=== PATIENT | male | born 1995 | race Caucasian/White ===

== ENCOUNTER 2019-03-14 17:01 | Observation (INO) ==
[2019-03-14] MEDS ORDERED: *HR* Ketamine 500 MG/5 ML MDV ONE (17:10)
[2019-03-14] MEDS ORDERED: *HR* Ketamine 500 MG/5 ML MDV IM ONE (17:15)
[2019-03-14] MEDS ORDERED: 0.9 % Sodium Chloride 1,000 ML IVC ONE (17:15)
--- NOTE | 2019-03-14 17:18 | Emergency Department Note ---
Disposition Clinical Impression: Seizure, History of traumatic brain injury, Marijuana use Disposition: Admitted As Inpatient Condition: Undetermined Referrals: NONE,PCP [Primary Care Provider] - Forms: ED Satisfaction Letter Time of Disposition: 19:01 Altered Mental Status HPI - General Chief Complaint: ED Seizure Stated Complaint: AMS Time Seen by Provider: 03/14/19 17:15 Source: EMS Mode of arrival: EMS Limitations: altered mental status Nursing Notes Reviewed: Yes Vital Signs Reviewed: Yes - History of Present Illness HPI Narrative: 23-year-old male with history of traumatic brain injury and associated sequelae. The patient had apparent seizure previously but no known previous seizure like activity per mother. 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 The mother states that he has had episodes like this in the past but they have not figured out why. Mother states the patient has recently been changed to take melatonin and for sleep. The patient had EMS called after the patient's significant other noted a drying up of bilateral upper extremities. He became altered afterward. He did not urinate himself did not bite his tongue without any shaking episodes. EMS arrived and the patient was extremely agitated requiring 5 mg of intramuscular Versed. The patient was restrained by 4 different burr sander/EMS providers. The patient was immediately administered 250 mg of IM ketamine upon arrival to the emergency department. He was placed on nonrebreather mask and hooked up to the monitor cardiac. The patient had an IV placed and I spoke with the patient's mother who confirms history. Patient unable to provide any history. He has no obvious signs of traumatic injury other than the anterior aspect of bilateral shins likely secondary to being restrained. 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 No other obvious signs of trauma. No obvious injury to the intraoral region of his mouth and no urination. Patient is extremely sweaty on evaluation. - Related Data Home Medications Medication Instructions Recorded Confirmed No Known Home Drugs 03/14/19 03/14/19 Allergies Allergy/AdvReac Type Severity Reaction Status Date / Time No Known Allergies Allergy Verified 05/25/17 00:19 Limitations: ROS unobtainable due to patients medical condition Past Medical History - Past Medical History Source: old records reviewed, obtained from family Medical history: Reports: CVA, other Surgical history: Reports: non-contributory Psychiatric history: Reports: no psych history - Social History Smoking Status: Current every day smoker Smokeless Tobacco Status: No Alcohol use: Reports: occasionally Drug use: Reports: none Physical Exam - General Limitations: altered mental status General appearance: obtunded - Head Head exam: atraumatic, normocephalic, normal inspection - Eye Eye exam: Present: normal appearance, PERRL, EOMI, other (Baseline aniscoria per mother) - ENT ENT exam: normal exam, normal oropharynx, mucous membranes moist - Neck Neck exam: Present: normal inspection, full ROM, trachea midline - Chest Chest inspection: Present: normal inspection, symmetric chest wall rise - Respiratory Respiratory exam: Present: normal lung sounds bilaterally - Cardiovascular Cardiovascular exam: Present: normal rhythm, tachycardia - Abdominal Exam Abdominal exam: Present: soft. Absent: Non-Tender, distention, guarding, rebound - Extremities Exam Extremities exam: Present: normal inspection, full ROM, normal capillary refill. Absent: tenderness, pedal edema - Expanded Neurological Exam Coma Scale Eye Opening: Spontaneous Coma Scale Motor Response: None Coma Scale Verbal Response: None Coma Scale Total: 6 - Skin Skin exam: Present: warm, dry, intact, normal color Course - Reevaluation(s) Reevaluation #1: Was called the bed side by nursing staff. Patient is alert and oriented at this time. He is answering questions appropriately. He still appears to be under the mild amount of importance from the ketamine but is coming out of it. The patient is following commands and is neurologically intact overall this time. Given the patient's history of chronic brain injury and symptoms that have resolved at this time, I feels that the patient likely had a seizure. Patient we given a prophylactic dose of Keppra. Patient will be admitted to the hospital. I will speak to neurology but the patient case will go from there. No further questions or concerns noted. Time: 18:23 - Consultations Consultation #1: I spoke with Dr. Carballo who agreed with plan of care. He agreed that loading Her be appropriate and agrees to see the patient consultation. Time: 18:35 Vital Signs Temperature 99.5 F 03/14/19 17:02 Pulse Rate 100 03/14/19 17:02 Respiratory Rate 22 03/14/19 17:02 Blood Pressure 137/70 03/14/19 17:02 O2 Sat by Pulse Oximetry 96 03/14/19 17:02 Temperature 99.5 F 03/14/19 18:40 Pulse Rate 93 03/14/19 18:43 Respiratory Rate 16 03/14/19 18:43 Blood Pressure 133/66 03/14/19 18:43 O2 Sat by Pulse Oximetry 99 03/14/19 18:43 Oxygen Delivery Oxygen Delivery Room Air Altered Mental Status - MDM Narrative Medical decision making narrative: Patient's workup in the emergency department demonstrates no acute process to account for patient's symptoms. Patient has no longer altered, and is resting comfortably in the room at this time. Feels though the patient likely had a seizure given symptoms short period of time and likeliness that this was a post ictal period of any agitation. The patient will be admitted to the hospital at this time. The patient was given a gram of Keppra prophylactically and we will discuss case with neurology. She made aware and agrees to plan. No further questions or concerns noted at this time. Accepted by Dr. Cortés. - Lab Data Lab results reviewed: Yes I reviewed the patient's lab results. Result diagrams: 03/14/19 17:10 03/14/19 17:10 Lab Results 03/14/19 03/14/19 03/14/19 Range/Units 17:10 17:10 17:10 WBC 11.4 H (4.3-11.1) K/mcL RBC 5.52 H (4.19-5.50) M/mcL Hgb 17.7 H (12.9-16.9) g/dL Hct 52.5 H (37.5-50.1) % MCV 95.1 (83.0-100.0) fL MCH 32.1 (28.0-33.3) pg MCHC 33.7 (31.6-35.5) g/dL RDW 12.0 (11.5-14.5) % Plt Count 293 (140-400) K/mcL MPV 11.5 (9.4-12.4) fL Immature Gran % 0.6 (0-4) % Seg Neutrophils % 41.5 % Lymphocytes % 47.7 % Monocytes % 8.3 % Eosinophils % 1.3 % Basophils % 0.6 % Neutrophils # 4.7 (1.6-8.9) K/mcL Lymphocytes # 5.5 H (0.6-4.6) K/mcL Monocytes # 1.0 (0.0-1.3) K/mcL Eosinophils # 0.2 (0.0-0.6) K/mcL Basophils # 0.1 (0.0-0.2) K/mcL PT 11.7 (9.4-12.1) Seconds INR 1.0 APTT 30.1 (26.0-36.0) Seconds Sodium 141 (136-145) mEq/L Potassium 2.9 L (3.5-5.1) mEq/L Chloride 103 (98-107) mEq/L Carbon Dioxide 14 L (23-29) mEq/L BUN 13 (6-20) mg/dL Creatinine 1.10 (0.70-1.30) mg/dL Est GFR ( Amer) > 60 (> 60) Est GFR (Non-Af Amer) > 60 (> 60) BUN/Creatinine Ratio 12 (6-26) Glucose 157 H (70-105) mg/dL Calculated Osmolality 295 (280-300) Calcium 10.1 (8.6-10.3) mg/dL Total Bilirubin 0.6 (0.3-1.0) mg/dL Direct Bilirubin 0.1 (0.0-0.2) mg/dL Indirect Bilirubin 0.5 (0.0-1.2) mg/dL AST 38 (13-39) Units/L ALT 35 (7-52) Units/L Alkaline Phosphatase 70 (34-104) Units/L Creatine Kinase 152 (30-223) Units/L Troponin I < 0.03 (< 0.04) ng/mL Serum Total Protein 8.5 (6.4-8.9) g/dL Albumin 6.0 H (3.5-5.7) g/dL Globulin 2.5 (2.4-3.5) g/dL Albumin/Globulin Ratio 2.4 H (1.1-2.2) Urine Color (Yellow) Urine Clarity (Clear) Urine pH (5.0-8.0) pH Units Ur Specific [place] (1.010-1.025) Urine Protein (Neg-Trace) mg/dL Urine Glucose (UA) (Normal) mg/dL Urine Ketones (Negative) mg/dL Urine Blood (Negative) Urine Nitrite (Negative) Urine Bilirubin (Negative) Urine Urobilinogen (Normal) mg/dL Ur Leukocyte Esterase (Negative) Urine Microscopic RBC (0-3) per hpf Urine Microscopic WBC (0-3) per hpf Ur Squamous Epith Cells (None-Few) per lpf Urine Bacteria (None-Few) per hpf Hyaline Casts (None-Few) per lpf Ur Culture Indicated? (NO) Salicylates < 2.5 L (15.0-30.0) mg/dL Urine Opiates Screen (Eatbna=822) ng/mL Acetaminophen < 10 L (10-20) mcg/mL Ur Barbiturates Screen (Yfdjbk=328) ng/mL Ur Phencyclidine Scrn (Cutoff=25) ng/mL Ur Amphetamines Screen (Pprhet=0516) ng/mL U Benzodiazepines Scrn (Mdsirc=506) ng/mL Urine Cocaine Screen (Cutoff= 300) ng/mL U Marijuana (THC) Screen (Cutoff = 50) ng/mL Ur Drug Screen Interp Ethyl Alcohol < 10 (Less than 10) mg/dL 03/14/19 03/14/19 Range/Units 17:19 17:22 WBC (4.3-11.1) K/mcL RBC (4.19-5.50) M/mcL Hgb (12.9-16.9) g/dL Hct (37.5-50.1) % MCV (83.0-100.0) fL MCH (28.0-33.3) pg MCHC (31.6-35.5) g/dL RDW (11.5-14.5) % Plt Count (140-400) K/mcL MPV (9.4-12.4) fL Immature Gran % (0-4) % Seg Neutrophils % % Lymphocytes % % Monocytes % % Eosinophils % % Basophils % % Neutrophils # (1.6-8.9) K/mcL Lymphocytes # (0.6-4.6) K/mcL Monocytes # (0.0-1.3) K/mcL Eosinophils # (0.0-0.6) K/mcL Basophils # (0.0-0.2) K/mcL PT (9.4-12.1) Seconds INR APTT (26.0-36.0) Seconds Sodium (136-145) mEq/L Potassium (3.5-5.1) mEq/L Chloride (98-107) mEq/L Carbon Dioxide (23-29) mEq/L BUN (6-20) mg/dL Creatinine (0.70-1.30) mg/dL Est GFR ( Amer) (> 60) Est GFR (Non-Af Amer) (> 60) BUN/Creatinine Ratio (6-26) Glucose (70-105) mg/dL Calculated Osmolality (280-300) Calcium (8.6-10.3) mg/dL Total Bilirubin (0.3-1.0) mg/dL Direct Bilirubin (0.0-0.2) mg/dL Indirect Bilirubin (0.0-1.2) mg/dL AST (13-39) Units/L ALT (7-52) Units/L Alkaline Phosphatase (34-104) Units/L Creatine Kinase (30-223) Units/L Troponin I (< 0.04) ng/mL Serum Total Protein (6.4-8.9) g/dL Albumin (3.5-5.7) g/dL Globulin (2.4-3.5) g/dL Albumin/Globulin Ratio (1.1-2.2) Urine Color Yellow (Yellow) Urine Clarity Cloudy A (Clear) Urine pH 5.0 (5.0-8.0) pH Units Ur Specific [place] 1.006 L (1.010-1.025) Urine Protein 100 H (Neg-Trace) mg/dL Urine Glucose (UA) Normal (Normal) mg/dL Urine Ketones Negative (Negative) mg/dL Urine Blood Moderate H (Negative) Urine Nitrite Negative (Negative) Urine Bilirubin Negative (Negative) Urine Urobilinogen Normal (Normal) mg/dL Ur Leukocyte Esterase Negative (Negative) Urine Microscopic RBC 0-3 (0-3) per hpf Urine Microscopic WBC 0-3 (0-3) per hpf Ur Squamous Epith Cells Many H (None-Few) per lpf Urine Bacteria None Seen (None-Few) per hpf Hyaline Casts None Seen (None-Few) per lpf Ur Culture Indicated? NO (NO) Salicylates (15.0-30.0) mg/dL Urine Opiates Screen Negative (Tjbdtd=716) ng/mL Acetaminophen (10-20) mcg/mL Ur Barbiturates Screen Negative (Hmamxo=907) ng/mL Ur Phencyclidine Scrn Negative (Cutoff=25) ng/mL Ur Amphetamines Screen Negative (Censky=1534) ng/mL U Benzodiazepines Scrn Negative (Zmmkha=504) ng/mL Urine Cocaine Screen Negative (Cutoff= 300) ng/mL U Marijuana (THC) Screen Positive H (Cutoff = 50) ng/mL Ur Drug Screen Interp See Below Ethyl Alcohol (Less than 10) mg/dL - Radiology Data Radiology results reviewed: Yes I reviewed the patient's radiology results. Chest X-Ray 03/14/19 17:15 IMPRESSION: No acute cardiopulmonary disease. D/ / David Francis MD / David Francis MD Interpreting Provider: David Francis MD Head CT 03/14/19 17:16 IMPRESSION: No acute intracranial abnormality. D/ / Juan M Linares MD / Juan M Linares MD Interpreting Provider: Juan M Linares MD - EKG Data EKG attestation: Yes I reviewed and interpreted this EKG. EKG results narrative: Heart rate 100 beats for minute. Sinus tachycardia. No ST elevation or ST depression noted. TPA Checklist - LKW: 3-4.5 hrs Add. Warnings/Precautions Patient/family understanding: The patient/family members have been counseled and understood the risk, benefit, and alternatives of treatment.
[2019-03-14] MEDS ORDERED: 0.9 % Sodium Chloride 1,000 ML ONE ×2 (17:21→18:21)
[2019-03-14 17:39] LABS: Basophils # 0.1 K/mcL (0.0-0.2); Basophils % 0.6 %; Eosinophils # 0.2 K/mcL (0.0-0.6); Eosinophils % 1.3 %; Hematocrit 52.5 % (37.5-50.1); Hemoglobin 17.7 g/dL (12.9-16.9); Immature Granulocytes % 0.6 % (0-4); Lymphocytes # 5.5 K/mcL (0.6-4.6); Lymphocytes % 47.7 %; Mean Corpuscular HGB Conc 33.7 g/dL (31.6-35.5); Mean Corpuscular Hemoglobin 32.1 pg (28.0-33.3); Mean Corpuscular Volume 95.1 fL (83.0-100.0); Mean Platelet Volume 11.5 fL (9.4-12.4); Monocytes % 8.3 %; Neutrophils # 4.7 K/mcL (1.6-8.9); Platelet Count 293 K/mcL (140-400); Red Blood Count 5.52 M/mcL (4.19-5.50); Segmented Neutrophils % 41.5 %
[2019-03-14 17:44] LABS: Bilirubin,Urine Negative (Negative); Blood,Urine Moderate (Negative); Clarity,Urine Cloudy (Clear); Color,Urine Yellow (Yellow); Glucose,Urine (UA) Normal (Normal); Ketones,Urine Negative (Negative); Leukocyte Esterase,Urine Negative (Negative); Nitrite,Urine Negative (Negative); Protein,Urine 100 mg/dL (Neg-Trace); Specific Gravity,Urine 1.006 (1.010-1.025); Urobilinogen,Urine Normal (Normal)
[2019-03-14 17:45] LABS: Bacteria,Urine None Seen per hpf (None-Few); Hyaline Casts,Urine None Seen per lpf (None-Few); RBC,Urine 0-3 per hpf (0-3); Squamous Epithelial Cell,Urine Many per lpf (None-Few); WBC,Urine 0-3 per hpf (0-3)
[2019-03-14 17:47] LABS: Prothrombin Time 11.7 Seconds (9.4-12.1)
[2019-03-14 17:50] LABS: Activated Partial Thrombo Time 30.1 Seconds (26.0-36.0)
--- NOTE | 2019-03-14 17:54 | Emergency Department Note ---
Disposition Clinical Impression: Seizure, History of traumatic brain injury, Marijuana use Disposition: Admitted As Inpatient Condition: Good Referrals: NONE,PCP [Primary Care Provider] - Forms: ED Satisfaction Letter Time of Disposition: 18:18 General Adult HPI - General Chief complaint: ED Seizure Stated complaint: AMS Time Seen by Provider: 03/14/19 17:15 Source: EMS Mode of arrival: EMS Limitations: altered mental status - History of Present Illness Pain Scale: 0 - Related Data Home Medications Medication Instructions Recorded Confirmed No Known Home Drugs 03/14/19 03/14/19 Allergies Allergy/AdvReac Type Severity Reaction Status Date / Time No Known Allergies Allergy Verified 05/25/17 00:19 Past Medical History - Past Medical History Medical history: Reports: CVA, other Surgical history: Reports: non-contributory Psychiatric history: Reports: no psych history - Social History Smoking Status: Current every day smoker Smokeless Tobacco Status: No Alcohol use: Reports: occasionally Drug use: Reports: none Physical Exam - General Limitations: altered mental status General appearance: obtunded Course Vital Signs Temperature 99.5 F 03/14/19 17:02 Pulse Rate 100 03/14/19 17:02 Respiratory Rate 22 03/14/19 17:02 Blood Pressure 137/70 03/14/19 17:02 O2 Sat by Pulse Oximetry 96 03/14/19 17:02 Temperature 99.5 F 03/14/19 17:15 Pulse Rate 88 03/14/19 18:09 Respiratory Rate 16 03/14/19 18:09 Blood Pressure 133/73 03/14/19 18:09 O2 Sat by Pulse Oximetry 98 03/14/19 18:09 Oxygen Delivery Oxygen Delivery Room Air Medical Decision Making - Lab Data Result diagrams: 03/14/19 17:10 03/14/19 17:10 Lab Results 03/14/19 03/14/19 03/14/19 Range/Units 17:10 17:10 17:10 WBC 11.4 H (4.3-11.1) K/mcL RBC 5.52 H (4.19-5.50) M/mcL Hgb 17.7 H (12.9-16.9) g/dL Hct 52.5 H (37.5-50.1) % MCV 95.1 (83.0-100.0) fL MCH 32.1 (28.0-33.3) pg MCHC 33.7 (31.6-35.5) g/dL RDW 12.0 (11.5-14.5) % Plt Count 293 (140-400) K/mcL MPV 11.5 (9.4-12.4) fL Immature Gran % 0.6 (0-4) % Seg Neutrophils % 41.5 % Lymphocytes % 47.7 % Monocytes % 8.3 % Eosinophils % 1.3 % Basophils % 0.6 % Neutrophils # 4.7 (1.6-8.9) K/mcL Lymphocytes # 5.5 H (0.6-4.6) K/mcL Monocytes # 1.0 (0.0-1.3) K/mcL Eosinophils # 0.2 (0.0-0.6) K/mcL Basophils # 0.1 (0.0-0.2) K/mcL PT 11.7 (9.4-12.1) Seconds INR 1.0 APTT 30.1 (26.0-36.0) Seconds Sodium 141 (136-145) mEq/L Potassium 2.9 L (3.5-5.1) mEq/L Chloride 103 (98-107) mEq/L Carbon Dioxide 14 L (23-29) mEq/L BUN 13 (6-20) mg/dL Creatinine 1.10 (0.70-1.30) mg/dL Est GFR ( Amer) > 60 (> 60) Est GFR (Non-Af Amer) > 60 (> 60) BUN/Creatinine Ratio 12 (6-26) Glucose 157 H (70-105) mg/dL Calculated Osmolality 295 (280-300) Calcium 10.1 (8.6-10.3) mg/dL Total Bilirubin 0.6 (0.3-1.0) mg/dL Direct Bilirubin 0.1 (0.0-0.2) mg/dL Indirect Bilirubin 0.5 (0.0-1.2) mg/dL AST 38 (13-39) Units/L ALT 35 (7-52) Units/L Alkaline Phosphatase 70 (34-104) Units/L Creatine Kinase 152 (30-223) Units/L Troponin I < 0.03 (< 0.04) ng/mL Serum Total Protein 8.5 (6.4-8.9) g/dL Albumin 6.0 H (3.5-5.7) g/dL Globulin 2.5 (2.4-3.5) g/dL Albumin/Globulin Ratio 2.4 H (1.1-2.2) Urine Color (Yellow) Urine Clarity (Clear) Urine pH (5.0-8.0) pH Units Ur Specific [place] (1.010-1.025) Urine Protein (Neg-Trace) mg/dL Urine Glucose (UA) (Normal) mg/dL Urine Ketones (Negative) mg/dL Urine Blood (Negative) Urine Nitrite (Negative) Urine Bilirubin (Negative) Urine Urobilinogen (Normal) mg/dL Ur Leukocyte Esterase (Negative) Urine Microscopic RBC (0-3) per hpf Urine Microscopic WBC (0-3) per hpf Ur Squamous Epith Cells (None-Few) per lpf Urine Bacteria (None-Few) per hpf Hyaline Casts (None-Few) per lpf Ur Culture Indicated? (NO) Salicylates < 2.5 L (15.0-30.0) mg/dL Urine Opiates Screen (Olprva=472) ng/mL Acetaminophen < 10 L (10-20) mcg/mL Ur Barbiturates Screen (Ketrbv=200) ng/mL Ur Phencyclidine Scrn (Cutoff=25) ng/mL Ur Amphetamines Screen (Plaqbr=8075) ng/mL U Benzodiazepines Scrn (Mtybjc=692) ng/mL Urine Cocaine Screen (Cutoff= 300) ng/mL U Marijuana (THC) Screen (Cutoff = 50) ng/mL Ur Drug Screen Interp Ethyl Alcohol < 10 (Less than 10) mg/dL 03/14/19 03/14/19 Range/Units 17:19 17:22 WBC (4.3-11.1) K/mcL RBC (4.19-5.50) M/mcL Hgb (12.9-16.9) g/dL Hct (37.5-50.1) % MCV (83.0-100.0) fL MCH (28.0-33.3) pg MCHC (31.6-35.5) g/dL RDW (11.5-14.5) % Plt Count (140-400) K/mcL MPV (9.4-12.4) fL Immature Gran % (0-4) % Seg Neutrophils % % Lymphocytes % % Monocytes % % Eosinophils % % Basophils % % Neutrophils # (1.6-8.9) K/mcL Lymphocytes # (0.6-4.6) K/mcL Monocytes # (0.0-1.3) K/mcL Eosinophils # (0.0-0.6) K/mcL Basophils # (0.0-0.2) K/mcL PT (9.4-12.1) Seconds INR APTT (26.0-36.0) Seconds Sodium (136-145) mEq/L Potassium (3.5-5.1) mEq/L Chloride (98-107) mEq/L Carbon Dioxide (23-29) mEq/L BUN (6-20) mg/dL Creatinine (0.70-1.30) mg/dL Est GFR ( Amer) (> 60) Est GFR (Non-Af Amer) (> 60) BUN/Creatinine Ratio (6-26) Glucose (70-105) mg/dL Calculated Osmolality (280-300) Calcium (8.6-10.3) mg/dL Total Bilirubin (0.3-1.0) mg/dL Direct Bilirubin (0.0-0.2) mg/dL Indirect Bilirubin (0.0-1.2) mg/dL AST (13-39) Units/L ALT (7-52) Units/L Alkaline Phosphatase (34-104) Units/L Creatine Kinase (30-223) Units/L Troponin I (< 0.04) ng/mL Serum Total Protein (6.4-8.9) g/dL Albumin (3.5-5.7) g/dL Globulin (2.4-3.5) g/dL Albumin/Globulin Ratio (1.1-2.2) Urine Color Yellow (Yellow) Urine Clarity Cloudy A (Clear) Urine pH 5.0 (5.0-8.0) pH Units Ur Specific [place] 1.006 L (1.010-1.025) Urine Protein 100 H (Neg-Trace) mg/dL Urine Glucose (UA) Normal (Normal) mg/dL Urine Ketones Negative (Negative) mg/dL Urine Blood Moderate H (Negative) Urine Nitrite Negative (Negative) Urine Bilirubin Negative (Negative) Urine Urobilinogen Normal (Normal) mg/dL Ur Leukocyte Esterase Negative (Negative) Urine Microscopic RBC 0-3 (0-3) per hpf Urine Microscopic WBC 0-3 (0-3) per hpf Ur Squamous Epith Cells Many H (None-Few) per lpf Urine Bacteria None Seen (None-Few) per hpf Hyaline Casts None Seen (None-Few) per lpf Ur Culture Indicated? NO (NO) Salicylates (15.0-30.0) mg/dL Urine Opiates Screen Negative (Euyfmc=471) ng/mL Acetaminophen (10-20) mcg/mL Ur Barbiturates Screen Negative (Tpwqyt=097) ng/mL Ur Phencyclidine Scrn Negative (Cutoff=25) ng/mL Ur Amphetamines Screen Negative (Jpfiwh=9247) ng/mL U Benzodiazepines Scrn Negative (Rwzkeg=304) ng/mL Urine Cocaine Screen Negative (Cutoff= 300) ng/mL U Marijuana (THC) Screen Positive H (Cutoff = 50) ng/mL Ur Drug Screen Interp See Below Ethyl Alcohol (Less than 10) mg/dL Critical Care Time Critical Care Time: Yes Total Critical Care Time: 35 Attestation: Critical care time of 35 minutes spent in medical management of altered mental status and combative patient requiring medications for sedation and airway monitoring. Attestation Statement - Attestation Attestation: I examined this patient and my medical decision-making was reviewed with the Resident Physician. I agree with the documented findings, disposition and treatment plan as described except to the extent set forth below. 23-year-old male presented to the emergency room for altered mental status. Patient was sitting at home with his girlfriend when apparently he had an unresponsive episode where he had some questionable seizure-like activity. It was reported that both of his arms had clenched up to his chest and he was very tight. He has no history of seizure disorder per family members. He does have a history of a traumatic brain injury approximately 5 years ago. There was concerns of possible seizure. There is also concerns of possible drug issues. Patient was combative when EMS arrived. They gave him Versed IM. Patient was still somewhat combative and altered upon arrival to the ER. He then was given 250 mg of IM ketamine. This did help sedate him to the point where we are able to put him in restraints to protect himself and staff members. CT of the brain was negative for any acute intracranial pathology. His bedside glucose was 208. His pulse ox was running in the low 90s. We did place him on a nonrebreather. EKG was reviewed with the resident and agree with the findings as such. All do cumentation agree upon Patient became more alert in the ER. He was no longer combative. I feels that he probably had a seizure today. He presented postictal and was combative during the post ictal state. Patient will be admitted. We will start him on 1 g of IV Keppra. We will consult with neurology.
[2019-03-14] MEDS ORDERED: levETIRAcetam 1,000 MG in 0.9 % Sodium Chloride 100 ML IVPB ONE (18:00)
[2019-03-14 18:07] LABS: Amphetamine Screen,Urine Negative ng/mL (Cutoff=1000); Barbiturate Screen,Urine Negative ng/mL (Cutoff=200); Benzodiazepines Screen,Urine Negative ng/mL (Cutoff=200); Cannabinoid Screen,Urine Positive ng/mL (Cutoff = 50); Cocaine Screen,Urine Negative ng/mL (Cutoff= 300); Opiate Screen,Urine Negative ng/mL (Cutoff=300); Phencyclidine Screen,Urine Negative ng/mL (Cutoff=25)
[2019-03-14 18:15] LABS: Acetaminophen < 10 mcg/mL (10-20); Alanine Aminotransferase 35 Units/L (7-52); Albumin/Globulin Ratio 2.4 (1.1-2.2); Alkaline Phosphatase 70 Units/L (34-104); Aspartate Amino Transferase 38 Units/L (13-39); BUN/Creatinine Ratio 12 (6-26); Bilirubin,Direct 0.1 mg/dL (0.0-0.2); Bilirubin,Indirect 0.5 mg/dL (0.0-1.2); Bilirubin,Total 0.6 mg/dL (0.3-1.0); Blood Urea Nitrogen 13 mg/dL (6-20); Calcium 10.1 mg/dL (8.6-10.3); Carbon Dioxide 14 mEq/L (23-29); Chloride 103 mEq/L (98-107); Creatine Kinase 152 Units/L (30-223); Ethanol < 10 mg/dL (Less than 10); Globulin 2.5 g/dL (2.4-3.5); Glucose 157 mg/dL (70-105); Osmolality,Calculated 295 (280-300); Potassium 2.9 mEq/L (3.5-5.1); Salicylate < 2.5 mg/dL (15.0-30.0); Sodium 141 mEq/L (136-145); Total Protein 8.5 g/dL (6.4-8.9); Troponin I < 0.03 ng/mL (< 0.04); eGFR For Non-African Americans > 60 (> 60)
[2019-03-14] MEDS: 0.9 % Sodium Chloride 1,000 ML IVC ONE ×2 (18:20→18:44)
[2019-03-14] MEDS ORDERED: Naloxone 0.4 MG/ML INJ IVP PRN (21:12)
[2019-03-14] MEDS ORDERED: *HR* LORazepam 2 MG/ML VIAL IVP PRN (21:13)
[2019-03-14] MEDS ORDERED: Ondansetron 4 MG/2 ML VIAL IVP PRN (21:32)
[2019-03-14] MEDS ORDERED: Acetaminophen 325 MG TABLET PO ONE (21:34)
[2019-03-14] MEDS ORDERED: 0.9 % Sodium Chloride 500 ML IVC ONE (22:18)
[2019-03-14] MEDS ORDERED: Acetaminophen/Aspirin/Caffeine TABLET PO PRN (22:19)
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
[2019-03-15] MEDS: 0.9 % Sodium Chloride 1,000 ML IVC SCH ×2 (01:01→08:21)
[2019-03-15 04:53] LABS: Basophils % 0.2 %; Eosinophils # 0.1 K/mcL (0.0-0.6); Eosinophils % 1.1 %; Hematocrit 41.2 % (37.5-50.1); Immature Granulocytes % 0.2 % (0-4); Lymphocytes # 2.1 K/mcL (0.6-4.6); Lymphocytes % 24.3 %; Mean Corpuscular Hemoglobin 31.3 pg (28.0-33.3); Mean Corpuscular Volume 92.2 fL (83.0-100.0); Mean Platelet Volume 11.4 fL (9.4-12.4); Monocytes # 0.8 K/mcL (0.0-1.3); Monocytes % 9.6 %; Neutrophils # 5.6 K/mcL (1.6-8.9); Platelet Count 183 K/mcL (140-400); Red Blood Count 4.47 M/mcL (4.19-5.50); Red Cell Distribution Width 12.2 % (11.5-14.5); Segmented Neutrophils % 64.6 %
[2019-03-15 05:40] LABS: BUN/Creatinine Ratio 12 (6-26); Blood Urea Nitrogen 10 mg/dL (6-20); Calcium 8.8 mg/dL (8.6-10.3); Carbon Dioxide 20 mEq/L (23-29); Chloride 111 mEq/L (98-107); Creatine Kinase 486 Units/L (30-223); Glucose 83 mg/dL (70-105); Osmolality,Calculated 288 (280-300); Potassium 3.9 mEq/L (3.5-5.1); Sodium 140 mEq/L (136-145); eGFR For Non-African Americans > 60 (> 60)
[2019-03-15] MEDS: *HR* Heparin 5,000 UNIT/ML VIAL SQ SCH ×2 (06:03→18:07)
[2019-03-15] MEDS: levETIRAcetam 250 MG TABLET PO SCH ×2 (06:03→18:06)
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
--- NOTE | 2019-03-15 14:42 | EEG/EMG/Oth Biometrics Report ---
EEG Procedure Report Date of procedure: 03/15/19 EEG Procedure: Routine EEG Procedure Note: This is a report of a 21 channel bipolar and referential montage EEG. A posterior dominant rhythm of 8-10 Hz moderate voltage alpha frequency is identified symmetrically in the posterior head regions. This rhythm attenuates symmetrically with eye opening. Hyperventilation is performed and does not significantly alter the recording. Periods of drowsiness and stage II sleep are identified as referenced by dropout of posterior dominant rhythm and emergence of vertex activity K complexes and sleep spindles. Photic stimulation is performed and produces a symmetric driving response. The EKG rhythm strip reveals normal sinus rhythm. Impressions: This EEG recording is within normal limits. There is no evidence of epileptiform activity identified during the recording. Comment: A normal EEG does not preclude a diagnosis of seizure or epilepsy. If the clinical suspicion for seizure activity is high, serial EEGs or perhaps a prolonged recording may increase the yield. Please correlate clinically.
[2019-03-15 15:43] VITALS: BP 111/65
--- NOTE | 2019-03-15 16:36 | Internal Med Progress Note ---
<Chevy Fam - Last Filed: 03/15/19 16:36> Hospitalist Progress Note - Encounter Date of Encounter: 03/15/19 - Exam Vitals: Temp Pulse Resp BP Pulse Ox 98.3 F 59 18 111/65 98 03/15/19 15:43 03/15/19 15:43 03/15/19 15:43 03/15/19 15:43 03/15/19 15:43 - Assessment and Plan (1) Seizure Current Visit: Yes Status: Acute (2) History of traumatic brain injury Current Visit: Yes Status: Acute (3) Hypokalemia Current Visit: Yes Status: Acute (4) DVT prophylaxis Current Visit: Yes Status: Acute (5) Hypotension Current Visit: Yes Status: Acute - Time Spent with Patient Total time spent is greater than 50% in coordination of care (as documented) at patient's floor/unit and/or counseling patient: Internal Medicine: Result - Labs CBC & Chem 7: 03/15/19 04:34 03/15/19 04:34 Labs: Short CBC 03/14/19 03/15/19 Range/Units 17:10 04:34 WBC 11.4 H 8.7 (4.3-11.1) K/mcL Hgb 17.7 H 14.0 D (12.9-16.9) g/dL Hct 52.5 H 41.2 (37.5-50.1) % Plt Count 293 183 (140-400) K/mcL Neutrophils # 4.7 5.6 (1.6-8.9) K/mcL BMP 03/14/19 03/15/19 17:10 04:34 Sodium 141 140 Potassium 2.9 L 3.9 D Chloride 103 111 H Carbon Dioxide 14 L 20 L BUN 13 10 Creatinine 1.10 0.83 Glucose 157 H 83 Calcium 10.1 8.8 Cardiac Enzymes 03/14/19 Range/Units 17:10 Troponin I < 0.03 (< 0.04) ng/mL Liver Function 03/14/19 Range/Units 17:10 Total Bilirubin 0.6 (0.3-1.0) mg/dL Direct Bilirubin 0.1 (0.0-0.2) mg/dL AST 38 (13-39) Units/L ALT 35 (7-52) Units/L Alkaline Phosphatase 70 (34-104) Units/L Albumin 6.0 H (3.5-5.7) g/dL Urine 03/14/19 Range/Units 17:22 Urine Color Yellow (Yellow) Urine Clarity Cloudy A (Clear) Urine pH 5.0 (5.0-8.0) pH Units Ur Specific [place] 1.006 L (1.010-1.025) Urine Protein 100 H (Neg-Trace) mg/dL Urine Glucose (UA) Normal (Normal) mg/dL - ABG Interpretation ABG results: PT/INR, D-dimer PT 11.7 Seconds (9.4-12.1) 03/14/19 17:10 - Impressions Impressions Chest X-Ray 03/14/19 17:15 IMPRESSION: No acute cardiopulmonary disease. D/ / David Francis MD / David Francis MD Interpreting Provider: David Francis MD Head CT 03/14/19 17:16 IMPRESSION: No acute intracranial abnormality. D/ / Juan M Linares MD / Juan M Linares MD Interpreting Provider: Juan M Linares MD Consult Discharge Plan - Plan Referrals: Chevy Mathews DO [Partnered Physician] - (Appointment has been requested.) NONE,PCP [Primary Care Provider] - <Denzel Fiore - Last Filed: 03/15/19 18:00> Hospitalist Progress Note - Encounter Date of Encounter: 03/15/19 - Exam Vitals: Temp Pulse Resp BP Pulse Ox 98.3 F 59 18 111/65 98 03/15/19 15:43 03/15/19 15:43 03/15/19 15:43 03/15/19 15:43 03/15/19 15:43 - Assessment and Plan (1) Grand mal seizure Current Visit: Yes Status: Acute (2) Seizure Current Visit: Yes Status: Acute (3) History of traumatic brain injury Current Visit: Yes Status: Acute (4) Hypokalemia Current Visit: Yes Status: Resolved (5) DVT prophylaxis Current Visit: Yes Status: Acute (6) Hypotension Current Visit: Yes Status: Acute - Time Spent with Patient Total time spent is greater than 50% in coordination of care (as documented) at patient's floor/unit and/or counseling patient: Internal Medicine: Result - Labs CBC & Chem 7: 03/15/19 04:34 03/15/19 04:34 Labs: Short CBC 03/15/19 Range/Units 04:34 WBC 8.7 (4.3-11.1) K/mcL Hgb 14.0 D (12.9-16.9) g/dL Hct 41.2 (37.5-50.1) % Plt Count 183 (140-400) K/mcL Neutrophils # 5.6 (1.6-8.9) K/mcL BMP 03/14/19 03/15/19 17:10 04:34 Sodium 141 140 Potassium 2.9 L 3.9 D Chloride 103 111 H Carbon Dioxide 14 L 20 L BUN 13 10 Creatinine 1.10 0.83 Glucose 157 H 83 Calcium 10.1 8.8 Cardiac Enzymes 03/14/19 Range/Units 17:10 Troponin I < 0.03 (< 0.04) ng/mL Liver Function 03/14/19 Range/Units 17:10 Total Bilirubin 0.6 (0.3-1.0) mg/dL Direct Bilirubin 0.1 (0.0-0.2) mg/dL AST 38 (13-39) Units/L ALT 35 (7-52) Units/L Alkaline Phosphatase 70 (34-104) Units/L Albumin 6.0 H (3.5-5.7) g/dL - ABG Interpretation ABG results: PT/INR, D-dimer PT 11.7 Seconds (9.4-12.1) 03/14/19 17:10 - Impressions Impressions Chest X-Ray 03/14/19 17:15 IMPRESSION: No acute cardiopulmonary disease. D/ / David Francis MD / David Francis MD Interpreting Provider: David Francis MD - Attending Attestation I examined this patient and my medical decision-making was reviewed with the Resident Physician on 03/15/19. I agree with the documented findings, disposition and treatment plan as described except to the extent set forth below. Mr Cabrera is currently in observation for new onset seizure. He remains moderate to high risk due to potential for worsening clinical status. Mr Cabrera just had EEG. He feels OK and is tolerating Keppra. No fever or chills. No CP or SOB. Awaiting MRI. Exam alert Comfortable Mucus membranes dry Heart not tachy No wheeze abd soft No focal neuro deficit I/P 1. Seizure 2. TBI Further diagnoses and plan as above. <Chevy Fam - Last Filed: 03/15/19 16:36> (5) Hypotension Qualifiers: Hypotension type: unspecified hypotension type Qualified Code(s): I95.9 - Hypotension, unspecified <Denzel Fiore - Last Filed: 03/15/19 18:00> (6) Hypotension Qualifiers: Hypotension type: unspecified hypotension type Qualified Code(s): I95.9 - Hypotension, unspecified
--- NOTE | 2019-03-15 17:28 | Electrocardiograph Report ---
[address] [place], [place] [address] Test Date: 2019-03-14 Pat Name: Faustino Cabrera Department: [id number] Room: 3B11 Gender: M Agent Producer: : [id number] Requested By: Young Boggs Order Number: [id number] Reading MD: Abhijit Vega Measurements Intervals [place] Rate: 100 P: 83 CO: 137 QRS: 72 QRSD: 91 T: -23 QT: 321 QTc: 414 Interpretive Statements Sinus tachycardia Nonspecific ST-T abnormalities Electronically Signed On 03-15-2019 17:26:32 EDT by Abhijit Vega
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
== END 2019-03-15 18:32 | disposition home or self-care (01) ==
LOC: EMEROOARM 17:01 → 3BNU 17:01 → SUATTDRO 20:02 → 3BNU 21:42
PROVIDERS: ADMIT Internal Medicine Nephrology; ATTEND Internal Medicine